=== PATIENT | male | born 1940 | race Caucasian/White ===

== ENCOUNTER 2021-04-07 12:15 | Inpatient (IN) ==
[2021-04-07] MEDS ORDERED: 0.9 % Sodium Chloride 500 ML IV ONE (12:58)
[2021-04-07 13:34] LABS: Hematocrit 37.3 % (37.5-50.1); Hemoglobin 12.6 g/dL (12.9-16.9); Mean Corpuscular HGB Conc 33.8 g/dL (31.6-35.5); Mean Corpuscular Hemoglobin 29.4 pg (28.0-33.3); Mean Corpuscular Volume 86.9 fL (83.0-100.0); Mean Platelet Volume 9.9 fL (9.4-12.4); Platelet Count 200 K/mcL (140-400); Red Blood Count 4.29 M/mcL (4.19-5.50); Red Cell Distribution Width 14.8 % (11.5-14.5); White Blood Count 16.5 K/mcL (4.3-11.1)
[2021-04-07 13:55] LABS: Lymphocytes # 0.3 K/mcL (0.6-4.6); Monocytes # 1.3 K/mcL (0.0-1.3); Neutrophils # 14.9 K/mcL (1.6-8.9); Platelet Estimate Normal (Normal)
[2021-04-07 14:35] LABS: Troponin I 0.05 ng/mL (< 0.04)
[2021-04-07 14:37] LABS: Influenza A PCR Negative (Negative); Influenza B PCR Negative (Negative); Resp. Syncytial Virus PCR Negative (Negative)
[2021-04-07 14:39] LABS: SARS-CoV-2 by PCR (In House) Negative (Negative)
[2021-04-07] MEDS ORDERED: Aspirin 325 MG TABLET PO ONE (14:40)
[2021-04-07] MEDS ORDERED: cefTRIAXone 1,000 MG in 0.9 % Sodium Chloride Mini Bag 100 ML IVPB ONE (14:47)
[2021-04-07] MEDS ORDERED: Isovue-370 500 ML BOTTLE IVP ONE (14:48)
[2021-04-07 14:50] LABS: Calcium 7.5 mg/dL (8.6-10.3); Potassium 3.2 mEq/L (3.5-5.1)
[2021-04-07 17:19] LABS: Bilirubin,Urine Negative (Negative); Blood,Urine Negative (Negative); Clarity,Urine Clear (Clear); Color,Urine Yellow (Yellow); Glucose,Urine (UA) Normal (Normal); Ketones,Urine Negative (Negative); Leukocyte Esterase,Urine Negative (Negative); Nitrite,Urine Negative (Negative); PH,Urine 5.5 pH Units (5.0-8.0); Protein,Urine Trace mg/dL (Neg-Trace); Specific Gravity,Urine 1.014 (1.010-1.025); Urobilinogen,Urine Normal (Normal)
[2021-04-07] MEDS ORDERED: Acetaminophen 325 MG TABLET PO PRN (17:25)
[2021-04-07] MEDS ORDERED: Melatonin 3 MG TABLET PO PRN (17:25)
[2021-04-07] MEDS ORDERED: *HR* HYDROcodone/Acet 5/325 mg TABLET PO PRN (17:25)
[2021-04-07] MEDS ORDERED: Naloxone 0.4 MG/ML INJ IVP PRN (17:25)
[2021-04-07] MEDS ORDERED: *HR* Promethazine 25 MG/ML VIAL IM PRN (17:27)
[2021-04-07] MEDS ORDERED: Perflutren Lipid Microsphere 1.3 ML in 0.9 % Sodium Chloride 8.7 ML IVP PRN (17:28)
[2021-04-07] MEDS ORDERED: *HR* Dextrose 50 % in Water (Vial) 50 ML VIAL IVP PRN (20:12)
[2021-04-07] MEDS ORDERED: D5% in Water 1,000 ML IVC PRN (20:12)
[2021-04-07] MEDS ORDERED: Dextrose Gel 15 GM/37.5 ML TUBE PO PRN ×2 (20:12)
[2021-04-07] MEDS: Lactobacillus 1 EACH CAP.SPRINK PO SCH (20:28)
[2021-04-07] MEDS: Ringers Solution, Lactated 1,000 ML IVC SCH (20:29)
[2021-04-07] MEDS: MetroNIDAZOLE 500 MG/100 ML 500 MG/100 ML BAG IVPB SCH (20:29)
[2021-04-08 00:49] LABS: Hematocrit 35.1 % (37.5-50.1); Hemoglobin 11.7 g/dL (12.9-16.9); Mean Corpuscular HGB Conc 33.3 g/dL (31.6-35.5); Mean Corpuscular Hemoglobin 28.9 pg (28.0-33.3); Mean Corpuscular Volume 86.7 fL (83.0-100.0); Mean Platelet Volume 10.1 fL (9.4-12.4); Platelet Count 191 K/mcL (140-400); Red Blood Count 4.05 M/mcL (4.19-5.50); Red Cell Distribution Width 14.8 % (11.5-14.5); White Blood Count 11.5 K/mcL (4.3-11.1)
[2021-04-08 00:56] LABS: INR 1.3; Prothrombin Time 14.7 Seconds (9.4-12.1)
[2021-04-08 01:12] LABS: Iron 28 mcg/dL (65-175)
[2021-04-08 01:19] LABS: % Iron Saturation 14 % (20-55); Anisocytosis 1+ (Not Present); Lymphocytes # 0.9 K/mcL (0.6-4.6); Monocytes # 0.5 K/mcL (0.0-1.3); Neutrophils # 9.4 K/mcL (1.6-8.9); Transferrin 141 mg/dL (203-362)
[2021-04-08 01:20] LABS: Platelet Estimate Normal (Normal)
[2021-04-08 01:28] LABS: Ferritin 459 ng/mL (20-250)
[2021-04-08] MEDS: MetroNIDAZOLE 500 MG/100 ML 500 MG/100 ML BAG IVPB SCH (01:36)
[2021-04-08 01:41] LABS: Folate > 22.3 ng/mL (3.0-16.0); Vitamin B12 > 1500 pg/mL (250-1100)
[2021-04-08 02:20] LABS: Albumin 2.4 g/dL (3.5-5.7); Albumin/Globulin Ratio 1.3 (1.1-2.2); Bilirubin,Total 0.5 mg/dL (0.3-1.0); Calcium 7.1 mg/dL (8.6-10.3); Chol/HDL Ratio 5.9 (0-4.9); Globulin 1.9 g/dL (2.4-3.5); Magnesium 1.7 mg/dL (1.6-2.6); Phosphorous 4.5 mg/dL (2.7-4.5); Total Protein 4.3 g/dL (6.4-8.9)
[2021-04-08] MEDS: *HR* Heparin 5,000 UNIT/ML VIAL SQ SCH ×2 (06:10→17:50)
[2021-04-08] MEDS: Ringers Solution, Lactated 1,000 ML IVC SCH ×2 (06:11→15:01)
[2021-04-08 07:12] LABS: Adenovirus F 40/41 PCR Not detected (Not detect); Astrovirus PCR Not detected (Not detect); Campylobacter by PCR Not detected (Not detect); Cryptosporidium by PCR Not detected (Not detect); Cyclospora cayetanensis PCR Not detected (Not detect); E. coli O157 by PCR Not detected (Not detect); Entamoeba histolytica PCR Not detected (Not detect); Enteroaggregative E.coli(EAEC) Not detected (Not detect); Enteropathogenic E.coli(EPEC) Not detected (Not detect); Enterotoxigenic E.coli (ETEC) Not detected (Not detect); Giardia lamblia PCR Not detected (Not detect); Norovirus GI/GII PCR DETECTED (Not detect); Plesiomonas shigelloides PCR Not detected (Not detect); Rotavirus A PCR Not detected (Not detect); Salmonella PCR Not detected (Not detect); Sapovirus PCR Not detected (Not detect); Shig/EnteroinvasiveE coli EIEC Not detected (Not detect); Shigalike tox-prod E coli STEC Not detected (Not detect); Vibrio PCR Not detected (Not detect); Vibrio cholerae PCR Not detected (Not detect); Yersinia enterocolitica PCR Not detected (Not detect)
[2021-04-08 07:14] LABS: C.difficile Toxin A/B Gene PCR DETECTED (Not detect)
[2021-04-08] MEDS: Insulin LISPRO 300 UNITS/3 ML VIAL SUBQ SCH ×4 (09:26→20:53)
[2021-04-08] MEDS: Aspirin 81 MG TAB.CHEW PO SCH (10:07)
[2021-04-08] MEDS: Vancomycin Oral Soln 125 MG/2.5 ML UDC PO SCH ×4 (10:07→20:53)
[2021-04-08] MEDS: Lactobacillus 1 EACH CAP.SPRINK PO SCH ×2 (10:07→20:50)
[2021-04-08 10:28] LABS: Sodium, Urine 12.4 mEq/L
[2021-04-08] MEDS ORDERED: Iron Sucrose Complex 400 MG in 0.9 % Sodium Chloride 250 ML IVPB ONE (13:29)
[2021-04-08] MEDS: allopurinoL 100 MG TABLET PO SCH (20:50)
[2021-04-08] MEDS ORDERED: traZODone 50 MG TABLET PO SCH (21:00)
[2021-04-09 02:10] LABS: Basophils % 0.4 %; Eosinophils # 0.2 K/mcL (0.0-0.6); Eosinophils % 2.1 %; Hematocrit 33.3 % (37.5-50.1); Hemoglobin 11.5 g/dL (12.9-16.9); Immature Granulocytes % 6.9 % (0-4); Lymphocytes # 0.5 K/mcL (0.6-4.6); Lymphocytes % 5.6 %; Mean Corpuscular HGB Conc 34.5 g/dL (31.6-35.5); Mean Corpuscular Hemoglobin 29.8 pg (28.0-33.3); Mean Corpuscular Volume 86.3 fL (83.0-100.0); Mean Platelet Volume 10.7 fL (9.4-12.4); Monocytes # 1.4 K/mcL (0.0-1.3); Neutrophils # 5.4 K/mcL (1.6-8.9); Platelet Count 180 K/mcL (140-400); Red Blood Count 3.86 M/mcL (4.19-5.50); Red Cell Distribution Width 14.6 % (11.5-14.5)
[2021-04-09] MEDS: Ringers Solution, Lactated 1,000 ML IVC SCH ×2 (02:19→15:44)
[2021-04-09 02:30] LABS: Calcium 7.2 mg/dL (8.6-10.3); Magnesium 1.6 mg/dL (1.6-2.6); Potassium 3.3 mEq/L (3.5-5.1)
[2021-04-09 02:42] LABS: Platelet Estimate Normal (Normal)
[2021-04-09] MEDS: *HR* Heparin 5,000 UNIT/ML VIAL SQ SCH ×2 (05:22→17:28)
[2021-04-09] MEDS ORDERED: Potassium Chloride 40 MEQ, Lidocaine 1% 2 ML in 0.9 % Sodium Chloride 500 ML IVPB ONE (08:25)
[2021-04-09] MEDS: Insulin LISPRO 300 UNITS/3 ML VIAL SUBQ SCH ×4 (08:42→21:52)
[2021-04-09] MEDS: Vancomycin Oral Soln 125 MG/2.5 ML UDC PO SCH ×4 (09:30→21:51)
[2021-04-09] MEDS: Aspirin 81 MG TAB.CHEW PO SCH (09:30)
[2021-04-09] MEDS: Cholecalciferol (D-3) 1,000 UNIT (25MCG) TABLET PO SCH (09:31)
[2021-04-09] MEDS: Colchicine 0.6 MG TABLET PO SCH (09:31)
[2021-04-09] MEDS: Magnesium Oxide 400 MG TABLET PO SCH (09:31)
[2021-04-09] MEDS: Vitamin B Complex/Vit C/Vit E 1 EACH TABLET PO SCH (09:31)
[2021-04-09] MEDS: Fluticasone Propionate Nasal 50 MCG/SPRAY BOTTLE NS SCH (09:34)
[2021-04-09] MEDS: allopurinoL 100 MG TABLET PO SCH ×2 (09:36→21:48)
[2021-04-09] MEDS: Lactobacillus 1 EACH CAP.SPRINK PO SCH ×2 (09:36→21:48)
[2021-04-09] MEDS ORDERED: traZODone 50 MG TABLET PO PRN (10:20)
[2021-04-09] MEDS ORDERED: *HR* Dextrose 50 % in Water (Syg) 50 ML SYRINGE IVP PRN (14:45)
[2021-04-10 02:55] LABS: Hematocrit 35.8 % (37.5-50.1); Hemoglobin 11.9 g/dL (12.9-16.9); Mean Corpuscular HGB Conc 33.2 g/dL (31.6-35.5); Mean Corpuscular Hemoglobin 28.9 pg (28.0-33.3); Mean Corpuscular Volume 86.9 fL (83.0-100.0); Mean Platelet Volume 10.5 fL (9.4-12.4); Platelet Count 208 K/mcL (140-400); Red Blood Count 4.12 M/mcL (4.19-5.50); Red Cell Distribution Width 14.7 % (11.5-14.5); White Blood Count 6.7 K/mcL (4.3-11.1)
[2021-04-10 03:15] LABS: BUN/Creatinine Ratio 32 (6-26); Blood Urea Nitrogen 43 mg/dL (8-23); Calcium 7.9 mg/dL (8.6-10.3); Carbon Dioxide 19 mEq/L (23-29); Chloride 109 mEq/L (98-107); Glucose 151 mg/dL (70-105); Lymphocytes # 0.3 K/mcL (0.6-4.6); Magnesium 2.1 mg/dL (1.6-2.6); Monocytes # 0.9 K/mcL (0.0-1.3); Neutrophils # 5.4 K/mcL (1.6-8.9); Osmolality,Calculated 298 (280-300); Potassium 3.4 mEq/L (3.5-5.1); Sodium 137 mEq/L (136-145); eGFR For African Americans > 60 (> 60); eGFR For Non-African Americans 51 (> 60)
[2021-04-10 03:16] LABS: Anisocytosis 1+ (Not Present); Platelet Estimate Normal (Normal)
[2021-04-10 03:20] VITALS: TEMP 97.6
[2021-04-10] MEDS: Ringers Solution, Lactated 1,000 ML IVC SCH (06:48)
[2021-04-10] MEDS: *HR* Heparin 5,000 UNIT/ML VIAL SQ SCH (06:48)
[2021-04-10 08:06] VITALS: BP 135/74; PULSE 100; O2SAT 94
[2021-04-10] MEDS: Insulin LISPRO 300 UNITS/3 ML VIAL SUBQ SCH (08:12)
[2021-04-10] MEDS: allopurinoL 100 MG TABLET PO SCH (08:21)
[2021-04-10] MEDS: Cholecalciferol (D-3) 1,000 UNIT (25MCG) TABLET PO SCH (08:21)
[2021-04-10] MEDS: Vitamin B Complex/Vit C/Vit E 1 EACH TABLET PO SCH (08:21)
[2021-04-10] MEDS: Colchicine 0.6 MG TABLET PO SCH (08:22)
[2021-04-10] MEDS: Magnesium Oxide 400 MG TABLET PO SCH (08:22)
[2021-04-10] MEDS: Lactobacillus 1 EACH CAP.SPRINK PO SCH (08:22)
[2021-04-10] MEDS: Vancomycin Oral Soln 125 MG/2.5 ML UDC PO SCH (08:22)
[2021-04-10] MEDS: Aspirin 81 MG TAB.CHEW PO SCH (08:22)
[2021-04-10] MEDS: Fluticasone Propionate Nasal 50 MCG/SPRAY BOTTLE NS SCH (08:22)
== END 2021-04-10 11:13 | disposition home or self-care (01) | DRG 371 ==
LOC: EMEROOARM 12:15 → 2ANU 12:15 → SUATTDRO 17:30 → 2ANU 18:20
PROVIDERS: ADMIT Internal Medicine; ATTEND Family Medicine

== ENCOUNTER 2021-04-13 10:46 | Observation (INO) ==
[2021-04-13 13:45] LABS: Hematocrit 36.4 % (37.5-50.1); Hemoglobin 11.8 g/dL (12.9-16.9); Mean Corpuscular HGB Conc 32.4 g/dL (31.6-35.5); Mean Corpuscular Hemoglobin 29.2 pg (28.0-33.3); Mean Corpuscular Volume 90.1 fL (83.0-100.0); Platelet Count 166 K/mcL (140-400); Red Blood Count 4.04 M/mcL (4.19-5.50); Red Cell Distribution Width 15.4 % (11.5-14.5); White Blood Count 6.5 K/mcL (4.3-11.1)
[2021-04-13 14:10] LABS: Influenza A PCR Negative (Negative); Influenza B PCR Negative (Negative); Resp. Syncytial Virus PCR Negative (Negative)
[2021-04-13 14:30] LABS: SARS-CoV-2 by PCR (In House) Positive (Negative)
[2021-04-13 15:53] LABS: Lymphocytes # 1.3 K/mcL (0.6-4.6); Monocytes # 0.4 K/mcL (0.0-1.3); Neutrophils # 4.8 K/mcL (1.6-8.9); Platelet Estimate Normal (Normal)
[2021-04-13 16:22] LABS: Alanine Aminotransferase 142 Units/L (7-52); Albumin 2.7 g/dL (3.5-5.7); Albumin/Globulin Ratio 1.6 (1.1-2.2); Alkaline Phosphatase 148 Units/L (34-104); Aspartate Amino Transferase 148 Units/L (13-39); BUN/Creatinine Ratio 26 (6-26); Bilirubin,Total 0.3 mg/dL (0.3-1.0); Blood Urea Nitrogen 32 mg/dL (8-23); Calcium 7.5 mg/dL (8.6-10.3); Carbon Dioxide 22 mEq/L (23-29); Chloride 108 mEq/L (98-107); Globulin 1.7 g/dL (2.4-3.5); Glucose 109 mg/dL (70-105); Magnesium 1.4 mg/dL (1.6-2.6); Osmolality,Calculated 295 (280-300); Potassium 3.9 mEq/L (3.5-5.1); Sodium 139 mEq/L (136-145); Total Protein 4.4 g/dL (6.4-8.9); Troponin I 0.05 ng/mL (< 0.04); eGFR For African Americans > 60 (> 60); eGFR For Non-African Americans 58 (> 60)
[2021-04-13 18:30] LABS: INR 1.1; Prothrombin Time 12.4 Seconds (9.4-12.1)
[2021-04-13 18:33] LABS: Activated Partial Thrombo Time 32.3 Seconds (26.0-36.0)
[2021-04-13] MEDS ORDERED: Isovue-370 500 ML BOTTLE IVP ONE (18:38)
[2021-04-13] MEDS ORDERED: Acetaminophen 325 MG TABLET PO PRN (23:14)
[2021-04-13] MEDS ORDERED: Ondansetron 4 MG/2 ML VIAL IVP PRN (23:14)
[2021-04-13] MEDS ORDERED: Naloxone 0.4 MG/ML INJ IVP PRN (23:14)
[2021-04-13] MEDS ORDERED: Melatonin 3 MG TABLET PO PRN (23:14)
[2021-04-13] MEDS ORDERED: *HR* Dextrose 50 % in Water (Vial) 50 ML VIAL IVP PRN (23:22)
[2021-04-13] MEDS ORDERED: D5% in Water 1,000 ML IVC PRN (23:22)
[2021-04-13] MEDS ORDERED: Dextrose Gel 15 GM/37.5 ML TUBE PO PRN ×2 (23:22)
[2021-04-14 01:04] LABS: Basophils % 0.5 %; Eosinophils # 0.1 K/mcL (0.0-0.6); Eosinophils % 1.5 %; Hematocrit 35.8 % (37.5-50.1); Hemoglobin 11.6 g/dL (12.9-16.9); Immature Granulocytes % 6.1 % (0-4); Lymphocytes % 12.6 %; Mean Corpuscular HGB Conc 32.4 g/dL (31.6-35.5); Mean Corpuscular Volume 89.5 fL (83.0-100.0); Mean Platelet Volume 9.6 fL (9.4-12.4); Monocytes # 0.7 K/mcL (0.0-1.3); Monocytes % 12.3 %; Platelet Count 142 K/mcL (140-400); Red Cell Distribution Width 15.6 % (11.5-14.5); White Blood Count 5.9 K/mcL (4.3-11.1)
[2021-04-14 01:09] LABS: Lymphocytes # 0.7 K/mcL (0.6-4.6)
[2021-04-14 01:29] LABS: Alanine Aminotransferase 128 Units/L (7-52); Albumin 2.7 g/dL (3.5-5.7); Albumin/Globulin Ratio 1.6 (1.1-2.2); Alkaline Phosphatase 138 Units/L (34-104); Aspartate Amino Transferase 117 Units/L (13-39); BUN/Creatinine Ratio 25 (6-26); Bilirubin,Total 0.3 mg/dL (0.3-1.0); Blood Urea Nitrogen 31 mg/dL (8-23); C-Reactive Protein 27 mg/L (Less than 10); Calcium 7.3 mg/dL (8.6-10.3); Carbon Dioxide 23 mEq/L (23-29); Chloride 108 mEq/L (98-107); Globulin 1.7 g/dL (2.4-3.5); Glucose 97 mg/dL (70-105); Lactate Dehydrogenase 159 Units/L (140-271); Magnesium 1.3 mg/dL (1.6-2.6); Osmolality,Calculated 296 (280-300); Potassium 3.7 mEq/L (3.5-5.1); Sodium 140 mEq/L (136-145); Total Protein 4.4 g/dL (6.4-8.9); eGFR For African Americans > 60 (> 60); eGFR For Non-African Americans 57 (> 60)
[2021-04-14 01:34] LABS: Estimated Average Glucose 128 mg/dl; Hemoglobin A1C 6.1 %
[2021-04-14 01:36] LABS: Thyroid Stimulating Hormone 6.967 mcIU/mL (0.340-5.600)
[2021-04-14 01:42] LABS: Ferritin 632 ng/mL (20-250)
[2021-04-14 02:22] LABS: Platelet Estimate Normal (Normal)
[2021-04-14] MEDS: Insulin LISPRO 300 UNITS/3 ML VIAL SUBQ SCH ×3 (07:43→16:54)
[2021-04-14] MEDS: Furosemide 40 MG TABLET PO SCH (09:44)
[2021-04-14] MEDS: Aspirin Enteric Coated 81 MG Tablet PO SCH (09:44)
[2021-04-14] MEDS: carvediloL 25 MG TABLET PO SCH ×2 (09:44→17:14)
[2021-04-14] MEDS: Colchicine 0.6 MG TABLET PO SCH ×2 (09:44→20:41)
[2021-04-14] MEDS: Magnesium Oxide 400 MG TABLET PO SCH (09:44)
[2021-04-14] MEDS: Vancomycin Oral Soln 125 MG/2.5 ML UDC PO SCH ×4 (09:45→20:41)
[2021-04-14] MEDS: *HR* Enoxaparin 40 MG/0.4 ML SYRINGE SQ SCH (09:45)
[2021-04-14] MEDS: Fluticasone Propionate Nasal 50 MCG/SPRAY BOTTLE NS SCH (10:23)
[2021-04-14] MEDS: traZODone 50 MG TABLET PO SCH (20:41)
[2021-04-14] MEDS: allopurinoL 100 MG TABLET PO SCH (20:41)
[2021-04-15 05:15] LABS: Basophils % 0.3 %; Hematocrit 36.1 % (37.5-50.1); Immature Granulocytes % 3.2 % (0-4); Lymphocytes # 0.9 K/mcL (0.6-4.6); Lymphocytes % 9.5 %; Mean Corpuscular HGB Conc 33.2 g/dL (31.6-35.5); Mean Corpuscular Hemoglobin 29.4 pg (28.0-33.3); Mean Corpuscular Volume 88.5 fL (83.0-100.0); Mean Platelet Volume 10.5 fL (9.4-12.4); Monocytes # 0.7 K/mcL (0.0-1.3); Monocytes % 7.6 %; Platelet Count 165 K/mcL (140-400); Red Blood Count 4.08 M/mcL (4.19-5.50); Red Cell Distribution Width 15.4 % (11.5-14.5); Segmented Neutrophils % 79.4 %
[2021-04-15 05:23] LABS: Neutrophils # 7.5 K/mcL (1.6-8.9); White Blood Count 9.4 K/mcL (4.3-11.1)
[2021-04-15] MEDS: Insulin LISPRO 300 UNITS/3 ML VIAL SUBQ SCH ×3 (07:28→16:54)
[2021-04-15 08:23] LABS: Alanine Aminotransferase 113 Units/L (7-52); Albumin 3.1 g/dL (3.5-5.7); Albumin/Globulin Ratio 2.2 (1.1-2.2); Alkaline Phosphatase 150 Units/L (34-104); Aspartate Amino Transferase 93 Units/L (13-39); BUN/Creatinine Ratio 29 (6-26); Bilirubin,Total 0.3 mg/dL (0.3-1.0); Blood Urea Nitrogen 37 mg/dL (8-23); Calcium 7.8 mg/dL (8.6-10.3); Carbon Dioxide 25 mEq/L (23-29); Chloride 107 mEq/L (98-107); Globulin 1.4 g/dL (2.4-3.5); Glucose 111 mg/dL (70-105); Osmolality,Calculated 297 (280-300); Potassium 4.3 mEq/L (3.5-5.1); Sodium 139 mEq/L (136-145); Total Protein 4.5 g/dL (6.4-8.9); eGFR For African Americans > 60 (> 60); eGFR For Non-African Americans 54 (> 60)
[2021-04-15] MEDS ORDERED: Vitamin B Complex/Vit C/Vit E 1 EACH TABLET PO SCH (09:00)
[2021-04-15] MEDS ORDERED: Cholecalciferol (D-3) 1,000 UNIT (25MCG) TABLET PO SCH (09:00)
[2021-04-15] MEDS ORDERED: paricalcitoL 1 MCG CAPSULE PO SCH (09:00)
[2021-04-15] MEDS ORDERED: Niacin (24 HR) 500 MG TAB.ER.24H PO SCH (09:00)
[2021-04-15] MEDS: allopurinoL 100 MG TABLET PO SCH ×2 (09:45→21:52)
[2021-04-15] MEDS: Aspirin Enteric Coated 81 MG Tablet PO SCH (09:45)
[2021-04-15] MEDS: *HR* Enoxaparin 40 MG/0.4 ML SYRINGE SQ SCH (09:45)
[2021-04-15] MEDS: Furosemide 40 MG TABLET PO SCH (09:46)
[2021-04-15] MEDS: carvediloL 25 MG TABLET PO SCH ×2 (09:46→17:27)
[2021-04-15] MEDS: Magnesium Oxide 400 MG TABLET PO SCH (09:46)
[2021-04-15] MEDS: Colchicine 0.6 MG TABLET PO SCH ×2 (09:46→21:51)
[2021-04-15] MEDS: Vancomycin Oral Soln 125 MG/2.5 ML UDC PO SCH ×4 (09:47→21:52)
[2021-04-15] MEDS: Fluticasone Propionate Nasal 50 MCG/SPRAY BOTTLE NS SCH (09:47)
[2021-04-15 16:42] VITALS: PULSE 71; TEMP 98.3; O2SAT 95
[2021-04-15 21:50] VITALS: BP 120/61
[2021-04-15] MEDS: traZODone 50 MG TABLET PO SCH (21:52)
== END 2021-04-15 22:51 | disposition critical access hospital (66) ==
LOC: 3NENU 10:46 → EMEROOARM 10:46 → SUATTDRO 22:34 → 3NENU 23:11
PROVIDERS: ADMIT Internal Medicine; ATTEND Family Medicine